=== PATIENT | male | born 2000 | race Caucasian/White ===

== ENCOUNTER 2024-10-13 16:33 | Emergency (ER) | payer BC ==
[~2024-10-13] VITALS: Ht 160 cm; Wt 57.5 kg
[2024-10-13 17:30] LABS: BASOPHILS % (AUTO) 0.6 % (0-1); EOSINOPHILS # (AUTO) 0.1 X10'3 (0-0.9); EOSINOPHILS % (AUTO) 1.1 % (0-6); HEMATOCRIT 46.7 % (42.0-52.0); HEMOGLOBIN 16.4 g/dl (14.0-17.9); LYMPHOCYTES # (AUTO) 1.8 X10'3 (1.1-4.8); LYMPHOCYTES % (AUTO) 30.3 % (21-51); MEAN CORPUSCULAR HGB CONC 35.1 g/dL (33.0-36.5); MEAN CORPUSCULAR VOLUME 88.4 FL (78-98); MEAN PLATELET VOLUME 8.1 FL (7.4-10.4); MONOCYTES # (AUTO) 0.3 X10'3 (0-0.9); MONOCYTES % (AUTO) 5.7 % (2-12); NEUTROPHILS # (AUTO) 3.8 X10'3 (1.8-7.7); NEUTROPHILS % (AUTO) 62.3 % (42-75); PLATELET COUNT 260 X10'3 (140-440); RED BLOOD COUNT 5.28 X10'6 (4.70-6.10); RED CELL DISTRIBUTION WIDTH 13.1 % (11.5-14.5); WHITE BLOOD COUNT 6.1 X10'3 (4.5-11.0)
[2024-10-13 17:53] LABS: ALANINE AMINOTRANSFERASE 22 U/L (12-78); ALBUMIN 4.5 G/DL (3.4-5.0); ALBUMIN/GLOBULIN RATIO 1.4 (1.1-1.5); ALKALINE PHOSPHATASE 58 IU/L (46-116); ANION GAP 9 (8-16); ASPARTATE AMINO TRANSFERASE 14 U/L (10-37); BLOOD UREA NITROGEN 16 MG/DL (7-18); BUN/CREATININE RATIO 13.4 (10.0-20.0); CALCIUM 9.3 MG/DL (8.5-10.1); CHLORIDE 101 MMOL/L (99-107); CREATININE 1.19 MG/DL (0.60-1.10); GLUCOSE 95 MG/DL (70-104); POTASSIUM 4.2 MMOL/L (3.5-5.1); PRO BRAIN NATRIURETIC PEPTIDE < 30 PG/ML (0-125); SODIUM 139 MMOL/L (135-145); TOTAL CARBON DIOXIDE 29.2 MMOL/L (24-32); TOTAL PROTEIN 7.7 G/DL (6.4-8.2); eCRCL 77 ML/MIN; eGFR 75 ML/MIN
[2024-10-13 18:16] LABS: URINE AMPHETAMINE SCREEN NEGATIVE (Neg); URINE BARBITUATE SCREEN NEGATIVE (Neg); URINE BENZODIAZEPINES SCREEN NEGATIVE (Neg); URINE CANNABINOID SCREEN NEGATIVE (Neg); URINE COCAINE SCREEN NEGATIVE (Neg); URINE METHADONE SCREEN NEGATIVE (Neg); URINE OPIATE SCREEN NEGATIVE (Neg); URINE PHENCYCLIDINE SCREEN NEGATIVE (Neg)
[2024-10-13 18:35] VITALS: TEMP 97.8
[2024-10-13 19:07] VITALS: BP 117/77; PULSE 87; RESP 18; O2SAT 100
== END 2024-10-13 19:10 | disposition home or self-care (01) ==
LOC: ER 16:34
DX: R55 Syncope and collapse (principal)
CPT/HCPCS: 36415; 71045; 80053; 80305; 82948; 83880; 84484; 85025; 93005; 99285

== ENCOUNTER 2024-12-16 16:42 | Emergency (ER) | payer BC ==
[~2024-12-16] VITALS: Ht 160 cm; Wt 52.3 kg
--- NOTE | 2024-12-16 17:25 | Physician Documentation ---
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 Patient reports the metal was not grossly contaminated with dirt. Patient reports unknown last tetanus shot. Patient reports no other acute symptoms or concerns including no other injuries. Tetanus Within 5 Years: No Medication Reconciliation Allergies: Coded Allergies: No Known Allergies (Unverified , 12/16/24) Review of Systems ROS Laceration to right hand as stated above in the HPI, otherwise all systems are reviewed and negative. Physical Exam Vital Signs: Temperature: 97.8, Heart Rate: 61, Respiratory Rate: 16, BP: 134/80, Pulse Oximetry: 100, Weight: 52.270 Physical Exam VITALS: Reviewed and as above. GENERAL: Alert, nontoxic appearing, no apparent distress. RESPIRATORY: No increased work of breathing, no respiratory distress, speaking in full clear sentences SKIN: 1 cm laceration to the palm of right hand at the base of right thumb, no evidence tendon involvement, no evidence of retained foreign body Procedures Laceration/Wound Repair Laceration : Location: Palm of right hand at base of thumb Length (cm): 1 Anesthesia: Lidocaine w/ Epi Volume Anesthetic (mls): 2 Prep: irrigated by nurse Irrigated w/ Saline (mls): 500 Margins: revised Foreign Body: not identified Repaired: skin Wound Repaired With: sutures Suture Size/Type: 5-0, prolene Number of Superficial Sutures: 4 Layer Closure?: No Dressing Applied: simple Sling Applied?: No Tolerated Procedure Well?: yes, no complications Progress Results/Orders Results/Orders Orders - ROLLY LOPEZ Dressing Orders (12/16/24 17:25) Laceration/I&D Tray Set Up (12/16/24 17:25) Wound Care Orders (12/16/24 17:25) Completed Orders - ROLLY LOPEZ Tetanus/Pertuss/Diph Acell/Pf (Boostrix (12/16/24 17:25) Acetaminophen 325mg Tablet (Tylenol Tabl (12/16/24 17:25) Lidocaine 1% W/Epi 1:100,000 (Xylocaine (12/16/24 17:25) Vital Signs 12/16/24 12/16/24 16:53 18:51 Temp 97.8 98.6 Pulse 61 60 Resp 16 18 B/P (MAP) 134/80 130/78 Pulse Ox 100 99 Medical Decision Making Findings This 24-year-old male presented with a 1 cm laceration to the palm of his right hand at the base of red thumb sustained after slipping and cutting his hand on a sharp piece of metal on a semi truck, it was no evidence of retained foreign body on physical exam and considering patient's cut it on a fixed object I have low suspicion for retained foreign body therefore imaging not obtained, patient was full range of motion in the thumb and there was no evidence of tendon involvement. The laceration was thoroughly irrigated and successfully repaired with four simple interrupted sutures without complication. Remainder of physical exam was benign and no other injuries reported or observed. Patient was provided home care instructions and return to care precautions which he verbalized understanding of. Differential Dx:Considerations: Include: Abrasion, Avulsion, Contusion, Fracture, Neurovascular injury, Retained foreign body Departure Time of Disposition: 18:29 Disposition: 01 HOME / SELF CARE / HOMELESS Impression: Primary Impression: Laceration Condition: Improved Discharge Instructions: Laceration Care, Adult, [id number] Additional Instructions: Keep the area clean and dry, please return to your choice of medical provider in seven days for suture removal (you may return here, your primary care, or an urgent care). Please follow up with your primary care provider in the next few days for wound recheck. Please return to the emergency department for any new or worsening concerning symptoms including but not limited to signs of infection such as increased pain, swelling, redness to your hand, or if you develop a fever. Referrals: NO PRIMARY CARE PROVIDER (PCP) Education Educated: Patient Educated regarding: diagnosis, treatment, prognosis, need for follow up Signature Scribe Signature: No scribe Attestation: The note accurately reflects work and decisions made by me.RICK Cancino 12/17/24 02:30 ROLLY LOEPZ December 16, 2024 17:25
[2024-12-16] MEDS: acetaminophen 325mg tablet PO ONE (17:37)
[2024-12-16] MEDS: TETanus/Pertussis (Acell)/Diphther VAC/PF (Tdap-Adult) 0.5ml syringe IMVAC ONE (17:38)
[2024-12-16] MEDS: LIDOcaine 1% W/epiNEPHrine 1:100,000 20ml vial IJ ONE (17:55)
[2024-12-16 18:51] VITALS: BP 130/78; PULSE 60; RESP 18; TEMP 98.6; O2SAT 99
== END 2024-12-16 18:53 | disposition home or self-care (01) ==
LOC: ER 16:43
DX: S61.411A Laceration without foreign body of right hand, initial encounter (principal); W01.0XXA Fall on same level from slipping, tripping and stumbling without subsequent striking against object, initial encounter; Y93.89 Activity, other specified; Y92.89 Other specified places as the place of occurrence of the external cause; Y99.8 Other external cause status
CPT/HCPCS: 12001; 90471; 90715; 99283; J7030; A6449

== ENCOUNTER 2025-04-19 13:18 | Emergency (ER) | payer BC, OTHER ==
[~2025-04-19] VITALS: Ht 160 cm; Wt 54.6 kg
[2025-04-19 13:46] VITALS: PULSE 65; RESP 18; O2SAT 100
--- NOTE | 2025-04-19 13:59 | Physician Documentation ---
History of Present Illness ~ Chief Complaint: Laceration Stated Complaint: FINGER LAC Time Seen by MD: 14:02 Primary Medical Doctor: none HPI 24-year-old male presents to the ED with a complaint of laceration in his right posterior aspect of his thumb. He says he incurred a laceration at work. Also states that he is up-to-date on his tetanus. bleeding is current control Tetanus Within 5 Years: No Medication Reconciliation Allergies: Coded Allergies: No Known Allergies (Unverified , 12/16/24) Review of Systems All Other Systems at this time: Reviewed and Negative ROS As stated above in the HPI, otherwise all systems are reviewed and negative. Physical Exam Physical Exam General: Alert, no apparent distress. Extremities: Normal range of motion, no deformity. v shape laceration 3.5 cm posterior right thumb Neurologic: Oriented x4. Psychiatric: Normal mood and affect. Skin: Normal color, warm and dry. No edema, no ecchymosis. Procedures Laceration/Wound Repair Laceration : Anesthesia: Lidocaine Suture Size/Type: 4-0 Number of Superficial Sutures: 10 Dressing Applied: simple Tolerated Procedure Well?: yes, no complications Progress Results/Orders Results/Orders Orders - KELVIN JONES NP Laceration/I&D Tray Set Up (04/19/25 ) Completed Orders - KELVIN JONES NP Lidocaine 1% 30ml Vial (Xylocaine 1% Via (04/19/25 14:02) Vital Signs 04/19/25 13:46 Temp 98.3 Pulse 65 Resp 18 Pulse Ox 100 O2 Flow Rate 0 Departure Disposition: 01 HOME / SELF CARE / HOMELESS Impression: Primary Impression: Laceration Condition: Stable Discharge Instructions: Laceration Care, Adult, [id number] Additional Instructions: Ciarra can come out in 7-10 days he can go to any urgent care and have those removed Referrals: NO PRIMARY CARE PROVIDER (PCP) Prescriptions Cephalexin*Monohydrate* (Keflex*) 500 Mg Capsule 1 CAP PO QID, #40 CAP Prov: KELVIN JONES NP 04/19/25 Education Educated: Patient Educated regarding: diagnosis Signature Scribe Signature: f Attestation: Scribed for Kelvin Jones Np by Kelvin Aviles NP . 04/19/25 14:48 KELVIN JONES NP Apr 19, 2025 13:59
[2025-04-19] MEDS: LIDOcaine 1% 30ml preserv. free vial SQ STA (14:17)
[2025-04-19] MEDS ORDERED: CEPH-585 PO (14:47)
[2025-04-19 14:59] VITALS: TEMP 98.3
== END 2025-04-19 15:01 | disposition home or self-care (01) ==
LOC: ER 13:19
DX: S61.011A Laceration without foreign body of right thumb without damage to nail, initial encounter (principal); X58.XXXA Exposure to other specified factors, initial encounter; Y93.89 Activity, other specified; Y92.89 Other specified places as the place of occurrence of the external cause; Y99.8 Other external cause status
CPT/HCPCS: 12002; 99283; A6258; A6449